=== PATIENT | female | born 1995 | race African-American/Black ===

== ENCOUNTER 2017-01-12 20:22 | Emergency (ER) | payer OTHER ==
[~2017-01-12] VITALS: Ht 157.5 cm; Wt 95.0 kg
[2017-01-13 02:15] VITALS: BP 118/72
== END 2017-01-13 04:00 | disposition home or self-care (01) ==
LOC: ER 20:35
DX: R55 Syncope and collapse (principal)
CPT/HCPCS: 93005; 99283